=== PATIENT | female | born 1980 | race African-American/Black ===

== ENCOUNTER 2017-07-09 18:46 | Emergency (ER) | END 2017-07-09 20:03 | disposition home or self-care (01) | LOC: SCSER 18:46 | DX: S16.1XXA Strain of muscle, fascia and tendon at neck level, initial encounter (principal); J45.909 Unspecified asthma, uncomplicated; V49.9XXA Car occupant (driver) (passenger) injured in unspecified traffic accident, initial encounter | CPT/HCPCS: 99283 ==